=== PATIENT | male | born 1980 | race Two or more races ===

== ENCOUNTER 2016-09-01 20:56 | Emergency (ER) | payer MEDICAID ==
[~2016-09-01] VITALS: Ht 180.3 cm; Wt 63.5 kg
[2016-09-01 21:00] VITALS: BP 125/95; PULSE 89; RESP 18; TEMP 98.7; O2SAT 100
--- NOTE | 2016-09-01 21:00 | NUR ---
Patient to ER bed 7 to gown for evaluation. Side rails up. Report given to Yady BUSTOS.
--- NOTE | 2016-09-01 21:10 | NUR ---
ER MD Hampton at bedside for evaluation
--- NOTE | 2016-09-01 21:12 | NUR ---
Patient to ER C/O severe left lower leg pain and reddness. Patient states that he has chronic bone infections, last one treated for two months. Patient has chronic "tracks" on both arms. Both lower legs are red, left leg severe reddness with mild swelling, pain 8/10. AAOx4, unlabored breathing, no signs of acute distress.
[2016-09-01] MEDS ORDERED: CEFAZOLIN 1 GM IVPB PREMIX 50 ML IV ONE (21:15)
[2016-09-01] MEDS ORDERED: NACL 0.9% 1,000 ML IV SCH (21:15)
--- NOTE | 2016-09-01 21:35 | NUR ---
# 20 gauge angiocath placed to right forearm. Use of asceptic technique. Opsite placed over site. Blood return noted. Blood for lab drawn from site including blood cultures and lactic acid. Flushed with 10 cc of normal saline. No evidence of infiltration noted. Patient tolerated well.
--- NOTE | 2016-09-01 22:00 | NUR ---
Radiology at bedside with portable for chest xray
[2016-09-01 22:08] LABS: BASOPHILS # (AUTO) 0.1 K/uL (0.0-0.2); BASOPHILS % (AUTO) 0.5 % (0.0-2.0); EOSINOPHILS # (AUTO) 0.1 K/uL (0.0-0.4); EOSINOPHILS % (AUTO) 0.7 % (0.0-4.0); HEMATOCRIT 38.4 % (36-54); HEMOGLOBIN 12.8 g/dL (14.0-18.0); LYMPHOCYTES # (AUTO) 3.2 K/uL (1.0-5.5); MEAN CORPUSCULAR HEMOGLOBIN 29 pg (27-31); MEAN CORPUSCULAR HGB CONC 33 % (32-36); MEAN CORPUSCULAR VOLUME 88 fL (79.0-98.0); MONOCYTES # (AUTO) 0.9 K/uL (0.0-1.0); MONOCYTES % (AUTO) 8.3 % (1.7-9.3); NEUTROPHILS % (AUTO) 59.5 % (40.0-70.0); PLATELET COUNT (AUTO) 165 K/uL (130-430); RED BLOOD CELL COUNT(AUTO) 4.38 MIL/uL (4.2-6.2); RED CELL DISTRIBUTION WIDTH 13.6 % (9.0-15.0); WHITE BLOOD COUNT (AUTO) 10.3 K/uL (4.8-10.8)
[2016-09-01 22:11] LABS: BILIRUBIN,URINE NEGATIVE (NEGATIVE); BLOOD, URINE NEGATIVE (NEGATIVE); CLARITY/URINE SL HAZY (CLEAR); COLOR,URINE YELLOW (YELLOW); GLUCOSE,URINE NEGATIVE (NEGATIVE); KETONES,URINE TRACE (NEGATIVE); LEUKOCYTE ESTERASE ,URINE NEGATIVE (NEGATIVE); NITRITE, URINE NEGATIVE (NEGATIVE); PROTEIN URINE 1+ (NEGATIVE)
--- NOTE | 2016-09-01 22:43 | NUR ---
Patient calm, no signs of acute distress. Father at bedside.
[2016-09-01 22:49] LABS: PROTHROMBIN TIME 10.4 SECS (9.5-12.5)
[2016-09-01 23:02] LABS: BARBITURATE, URINE NEGATIVE (NEG <=200); BENZODIAZEPINE, URINE POSITIVE (NEG <=150); CANNABINOID, URINE NEGATIVE (NEG <=50); COCAINE, URINE NEGATIVE (NEG <=150); METHAMPHETAMINES SCREEN,URINE POSITIVE (NEG <=500); OPIATE, URINE POSITIVE (NEG <=100); PHENCYCLIDINE SCREEN,URINE NEGATIVE (NEG <=25); UR TRICYCLIC ANTIDEPRESSANTS NEGATIVE (NEG <=300); URINE AMPHETAMINE POSITIVE (NEG <=500); URINE METHADONE NEGATIVE (NEG <=200); URINE OXYCODONE SCREEN NEGATIVE (NEG <=100); URINE PROPOXYPHENE SCREEN NEGATIVE (NEG <=300)
--- NOTE | 2016-09-01 23:07 | NUR ---
ER MD Hampton at bedside discussing plan of care with patient
[2016-09-01 23:24] LABS: BACTERIA,URINE FEW /HPF (None Seen); MUCUS,URINE 2+ /LPF (None Seen); RBC,URINE NONE SEEN /HPF (0-3); WBC,URINE 0-3 /HPF (0-3)
[2016-09-01 23:30] LABS: CALCIUM 9.1 mg/dL (8.4-11.0); CREATININE 1.01 mg/dL (0.55-1.30); POTASSIUM 3.6 mmol/L (3.5-5.1)
[2016-09-01 23:34] LABS: ALBUMIN 3.5 g/dL (3.4-4.8); TOTAL BILIRUBIN 0.3 mg/dL (0.0-1.0); TOTAL PROTEIN, SERUM 8.2 g/dL (6.4-8.3)
[2016-09-01 23:38] VITALS: BP 121/74; PULSE 76; RESP 15; TEMP 98.4; O2SAT 99
--- NOTE | 2016-09-01 23:38 | NUR ---
Patient given written and verbal discharge instructions and verbalizes understanding. ER MD Hampton discussed with patient the results and treatment provided. Patient in stable condition. ID arm band removed. IV catheter removed intact and dressing applied, no active bleeding. Rx of tylenol, keflex, bactrin given. Patient educated on pain management and to follow up with PMD. Pain Scale 0/10. Opportunity for questions provided and answered.
== END 2016-09-01 23:38 | disposition home or self-care (01) ==
LOC: SED 20:56
DX: L03.116 Cellulitis of left lower limb (principal); F15.10 Other stimulant abuse, uncomplicated; F11.20 Opioid dependence, uncomplicated
CPT/HCPCS: 36415; 71010; 80053; 80307; 81000; 82550; 83605; 85025; 85610; 85730; 87040; 93005; 96365; 99285; J0690; 87070-TC; J7030

== ENCOUNTER 2023-07-06 10:48 | Emergency (ER) | payer MEDICAID ==
[~2023-07-06] VITALS: Ht 177.8 cm; Wt 61.2 kg
[2023-07-06 10:50] VITALS: BP_SYST 140; PULSE 104; RESP 24; TEMP 98.3; O2SAT 84
[2023-07-06] MEDS ORDERED: methylPREDNISolone SOD SUCC/PF 62.5 MG/ML VIAL IVP ONE (11:15)
[2023-07-06] MEDS ORDERED: IPRATROPIUM/ALBUTEROL SULFATE 3 ML AMPUL.NEB (DUONEB) INH ONE ×2 (11:15→12:15)
[2023-07-06 12:05] LABS: BASOPHILS % (AUTO) 0.3 % (0.0-2.0); EOSINOPHILS # (AUTO) 0.3 K/uL (0.0-0.4); EOSINOPHILS % (AUTO) 2.7 % (0.0-4.0); HEMATOCRIT 48.4 % (36-54); HEMOGLOBIN 15.8 g/dL (14.0-18.0); LYMPHOCYTES # (AUTO) 1.8 K/uL (1.0-5.5); LYMPHOCYTES % (AUTO) 17.1 % (20.5-51.5); MEAN CORPUSCULAR HEMOGLOBIN 29 pg (27-31); MEAN CORPUSCULAR HGB CONC 33 % (32-36); MEAN CORPUSCULAR VOLUME 88 fL (79.0-98.0); MONOCYTES # (AUTO) 0.7 K/uL (0.0-1.0); MONOCYTES % (AUTO) 6.6 % (1.7-9.3); NEUTROPHILS # (AUTO) 7.7 K/uL (1.8-7.7); NEUTROPHILS % (AUTO) 73.3 % (40.0-70.0); PLATELET COUNT (AUTO) 165 K/uL (130-430); RED BLOOD CELL COUNT(AUTO) 5.47 MIL/uL (4.2-6.2); RED CELL DISTRIBUTION WIDTH 13.8 % (9.0-15.0); WHITE BLOOD COUNT (AUTO) 10.5 K/uL (4.8-10.8)
[2023-07-06 12:32] LABS: ANION GAP 10 (5-15); CALCIUM 9.9 mg/dL (8.4-11.0); CARBON DIOXIDE 28 mmol/L (23-29); CHLORIDE 98 mmol/L (98-107); CREATININE 0.93 mg/dL (0.55-1.30); GFR AFRICAN AMERICAN 113 mL/min (>90); GLUCOSE 125 mg/dL (74-106); POTASSIUM 3.7 mmol/L (3.5-5.1); SODIUM SERUM 136 mmol/L (136-145); UREA NITROGEN, BLOOD 14 mg/dL (8-21)
[2023-07-06 12:36] LABS: GFR NON AFRICAN-AMERICAN 93 mL/min (>90)
[2023-07-06] MEDS ORDERED: PRED50TA PO (13:19)
[2023-07-06] MEDS ORDERED: ALBMDI INH (13:19)
[2023-07-06 13:30] VITALS: BP_SYST 121; PULSE 81; RESP 16; TEMP 98.2
[2023-07-06 13:43] VITALS: O2SAT 100
== END 2023-07-06 13:28 | disposition home or self-care (01) ==
LOC: SED 10:48
DX: J44.1 Chronic obstructive pulmonary disease with (acute) exacerbation (principal); Z79.899 Other long term (current) drug therapy
CPT/HCPCS: 99285; 96374; 71045; 80048; 83880; 85025; 84484; 36415; 93005; 94640; J2930